=== PATIENT | female | born 1970 | race Caucasian/White ===

== ENCOUNTER → 2016-10-31 | Outpatient (REF) | payer OTHER, MEDICARE ==
[~2016-10-31] MED LIST: /LAMO20TA OR; /OXYC15TA OR; ACET65TA OR; BACL10TA2; CALC0.5C OR; COLA100C2 OR; DICLOFENAC PO; FERR325T; FERR325T OR; FLEXERIL OR; FLEXERIL PO; FLON0.05; FOLI1TAB OR; FOLI400T PO; GINGER PO; GLIP5TAB2 PO; IBUP800T OR; Indomethacin PO; LABE10TAB PO; LASI40TA; LASI40TA OR; LIDO5DIS; LIDO5DIS TD; LUNE2TAB OR; MIRALEX; MIRALEX OR; MORP60TA OR; MORP60TA3; MS C30TA2 OR; MULTCAP8 PO; MULTIVIT OR; NAPR-239 OR; NEUR300C OR; OPAN10TA16; POTA95TA PO; PRENTAB74 PO; PRIL40CA OR; PROBCAP4 PO; SOMA350T; SPIR25TA2 OR; TEGR200T; TEGR200T OR; VITAD1000T PO; VOLT1GEL TOP; VOLT1GEL2 TD; ZANA4CAP OR; ZANTTAB PO; ZIPR80CAP OR; [UNRECOGNIZED DRUG - OTHER]; [UNRECOGNIZED DRUG - OTHER] PO; [UNRECOGNIZED DRUG - OTHER] TOP
[2016-10-31 11:58] LABS: PROGESTERONE 28.3 NG/ML
[2016-10-31 11:59] LABS: ESTRADIOL 1153.7 PG/ML
== END ==
LOC: M LABDRAW1 11:14
PROVIDERS: ATTEND Obstetrics & Gynecology Reproductive Endocrinology
DX: N97.9 Female infertility, unspecified (principal)

== ENCOUNTER → 2019-03-03 | Outpatient (REF) | payer BC, MEDICARE ==
[~2019-03-03] MED LIST changes: -/LAMO20TA OR; -/OXYC15TA OR; -CALC0.5C OR; +CALC0.5C14 OR; +LAMI1TAB9 OR; +OXYC1TAB32 OR
[2019-03-03 12:38] LABS: HEMATOCRIT 36.7 % (36.0-47.0); HEMOGLOBIN 11.9 g/dl (12.0-15.5); MEAN CORPUSCULAR HEMOGLOBIN 29.2 pg (27.0-33.0); MEAN CORPUSCULAR HGB CONC 32.4 g/dl (32.0-36.5); MEAN CORPUSCULAR VOLUME 90.2 fl (80.0-96.0); PLATELET COUNT, AUTOMATED 299 10^3/uL (150-450); RED BLOOD COUNT 4.07 10^6/uL (4.00-5.40); WHITE BLOOD COUNT 11.3 10^3/uL (4.0-10.0)
[2019-03-03 13:00] LABS: ALBUMIN 3.4 GM/DL (3.2-5.2); BILIRUBIN,TOTAL 0.3 MG/DL (0.2-1.0); CALCIUM LEVEL 9.5 MG/DL (8.5-10.1); CREATININE FOR GFR 1.09 MG/DL (0.55-1.30); GLOMERULAR FILTRATION RATE 56.8 (>58); POTASSIUM SERUM 4.9 MEQ/L (3.5-5.1); TOTAL PROTEIN 6.9 GM/DL (6.4-8.2)
[2019-03-03 13:35] LABS: HEMOGLOBIN A1c 6.2 %
== END ==
LOC: M SFHCADAM 10:13
PROVIDERS: ATTEND Physician Assistant
DX: E11.9 Type 2 diabetes mellitus without complications (principal); N18.3 Chronic kidney disease, stage 3 (moderate)

== ENCOUNTER → 2019-05-27 | Outpatient (REF) | payer BC, MEDICARE ==
[2019-05-27 12:32] LABS: AMORPHOUS SEDIMENT SMALL (NEGATIVE); APPEARANCE, URINE CLEAR (CLEAR); BACTERIA, URINE AUTO NEGATIVE (NEGATIVE); BILIRUBIN, URINE AUTO NEGATIVE (NEGATIVE); BLOOD, URINE BLOOD NEGATIVE (NEGATIVE); COLOR, URINE YELLOW (YELLOW); GLUCOSE, URINE (UA) AUTO NEGATIVE (NEGATIVE); KETONE, URINE AUTO NEGATIVE (NEGATIVE); LEUKOCYTE ESTERASE, URINE AUTO NEGATIVE (NEGATIVE); NITRITE, URINE AUTO NEGATIVE (NEGATIVE); PROTEIN, URINE AUTO NEGATIVE (NEGATIVE); RBC, URINE AUTO 0 /HPF (0-3); SPECIFIC GRAVITY URINE AUTO 1.006 (1.002-1.035); SQUAMOUS EPITHELIAL CELL UR AU 1 /HPF (0-6); UROBILINOGEN, URINE AUTO 0.2 mg/dL (0.0-2.0); WBC, URINE AUTO 1 /HPF (0-3)
[2019-05-27 12:44] LABS: CALCIUM LEVEL 9.4 MG/DL (8.5-10.1); CREATININE FOR GFR 1.06 MG/DL (0.55-1.30); GLOMERULAR FILTRATION RATE 58.7 (>58)
== END ==
LOC: M SFHCADAM 07:35
PROVIDERS: ATTEND Physician Assistant
DX: Z23 Encounter for immunization (principal); R82.90 Unspecified abnormal findings in urine; E11.9 Type 2 diabetes mellitus without complications

== ENCOUNTER → 2019-07-17 | Outpatient (REF) | payer BC, MEDICARE ==
[2019-07-17 17:11] LABS: HEMATOCRIT 39.3 % (36.0-47.0); HEMOGLOBIN 12.2 g/dl (12.0-15.5); MEAN CORPUSCULAR HEMOGLOBIN 27.8 pg (27.0-33.0); MEAN CORPUSCULAR VOLUME 89.5 fl (80.0-96.0); PLATELET COUNT, AUTOMATED 328 10^3/uL (150-450); RED BLOOD COUNT 4.39 10^6/uL (4.00-5.40); WHITE BLOOD COUNT 14.4 10^3/uL (4.0-10.0)
[2019-07-17 17:19] LABS: ALBUMIN 3.6 GM/DL (3.2-5.2); BILIRUBIN,TOTAL 0.2 MG/DL (0.2-1.0); CALCIUM LEVEL 9.7 MG/DL (8.5-10.1); CHOLESTEROL RISK RATIO 3.593 (<5); CREATININE FOR GFR 1.09 MG/DL (0.55-1.30); FREE T4 1.08 NG/DL (0.76-1.46); GLOMERULAR FILTRATION RATE 56.6 (>51); POTASSIUM SERUM 5.5 MEQ/L (3.5-5.1); THYROID STIMULATING HORMONE 2.17 uIU/ML (0.358-3.740); TOTAL PROTEIN 7.2 GM/DL (6.4-8.2)
[2019-07-17 17:40] LABS: HEMOGLOBIN A1c 6.5 %
[2019-07-17 17:44] LABS: MALB URINE SIEMENS 98.9 MG/L; MAU/CREAT RATIO 290.8 MCG/MG (0.0-30.0)
== END ==
LOC: M SFHCADAM 13:49
PROVIDERS: ATTEND Physician Assistant
DX: E11.9 Type 2 diabetes mellitus without complications (principal); N18.3 Chronic kidney disease, stage 3 (moderate)

== ENCOUNTER → 2019-08-19 | Outpatient (REF) | payer BC, MEDICARE ==
[2019-08-19 13:36] LABS: BLOOD UREA NITROGEN 7 MG/DL (7-18); CALCIUM LEVEL 9.4 MG/DL (8.5-10.1); CARBON DIOXIDE LEVEL 30 MEQ/L (21-32); CHLORIDE LEVEL 98 MEQ/L (98-107); CREATININE FOR GFR 0.99 MG/DL (0.55-1.30); GLOMERULAR FILTRATION RATE > 60.0 (>51); GLUCOSE, FASTING 102 MG/DL (70-100); POTASSIUM SERUM 5.1 MEQ/L (3.5-5.1); SODIUM LEVEL 133 MEQ/L (136-145)
== END ==
LOC: M SFHCADAM 09:05
PROVIDERS: ATTEND Physician Assistant
DX: E87.5 Hyperkalemia (principal)

== ENCOUNTER → 2019-10-02 | Outpatient (REF) | payer BC, MEDICARE ==
[2019-10-02 18:02] LABS: ALBUMIN 3.7 GM/DL (3.2-5.2); C REACTIVE PROTEIN QUANTITATIV 2.25 MG/DL (0.00-0.30); CREATININE FOR GFR 1.07 MG/DL (0.55-1.30); GLOMERULAR FILTRATION RATE 57.8 (>51)
[2019-10-02 18:05] LABS: BASO % 0.3 % (0.0-1.0); EOS # 0.2 10^3/uL (0.0-0.5); EOS % 1.8 % (0.0-3.0); HEMATOCRIT 36.6 % (36.0-47.0); HEMOGLOBIN 12.1 g/dl (12.0-15.5); LYMPH # 2.9 10^3/uL (1.5-5.0); MEAN CORPUSCULAR HGB CONC 33.1 g/dl (32.0-36.5); MEAN CORPUSCULAR VOLUME 87.8 fl (80.0-96.0); MONO % 7.3 % (0.0-5.0); NEUTROPHILS # 9.1 10^3/uL (1.5-8.5); NEUTROPHILS % 68.1 % (36.0-66.0); PLATELET COUNT, AUTOMATED 342 10^3/uL (150-450); RED BLOOD COUNT 4.17 10^6/uL (4.00-5.40); WHITE BLOOD COUNT 13.3 10^3/uL (4.0-10.0)
[2019-10-02 19:02] LABS: ERYTHROCYTE SEDIMENTATION RATE 82 mm/hr (0-30)
== END ==
LOC: M LAB REF 16:34
PROVIDERS: ATTEND Internal Medicine Rheumatology
DX: M45.6 Ankylosing spondylitis lumbar region (principal); M79.7 Fibromyalgia; Z79.899 Other long term (current) drug therapy

== ENCOUNTER → 2019-10-25 | Outpatient (CLI) | payer BC, MEDICARE ==
--- NOTE | 2019-10-29 17:28 | SLEEPCENT ---
DATE OF PROCEDURE: 10/25/2019 ORDERED BY: GILMA Flores Nocturnal polysomnography was performed for evaluation of sleep physiology in this patient with history of excessive somnolence and nonrestorative sleep who has comorbidities of diabetes. 8 hours and 13 minutes of data were reviewed. There were 391 minutes of sleep identified. Sleep latency was prolonged at 47 minutes. Rapid eye movement (REM) latency was prolonged at 155 minutes. Sleep architecture was fair with some fragmentation. Two REM cycles were noted. Overall sleep efficiency 80.9%. The electrocardiogram shows a sinus rhythm with an average heart rate of 90 beats per minute. Electroencephalogram (EEG) showed normal waveforms for awake and sleep and some artifact was noted. There were 63 respiratory events identified of 10 seconds in duration or greater for an apnea hypopnea index of 9.7. The events were not exclusive sleep stage, more frequent in the supine posture but not exclusive to that position. Arousals from respiratory events occurred 6.3 times per hour and oxygen desaturations were seen into the low 80s. There was some activity in the limb leads but limb movement arousals were few. Snoring was noted over the course of the entire study. IMPRESSION: Obstructive sleep apnea syndrome (G47.33). Apnea hypopnea index of 9.7. RECOMMENDATIONS: The patient should be encouraged to return to the sleep disorder center for pressure therapy. In the interim, alcohol and sedative avoidance should be practiced and caution exercised during the operation of motor vehicles.
== END ==
LOC: M SLEEP 20:00
PROVIDERS: ATTEND Physician Assistant
DX: G47.33 Obstructive sleep apnea (adult) (pediatric) (principal)

== ENCOUNTER → 2019-11-14 | Outpatient (REF) | payer BC, MEDICARE ==
[2019-11-14 13:01] LABS: HEMATOCRIT 35.7 % (36.0-47.0); HEMOGLOBIN 11.5 g/dl (12.0-15.5); MEAN CORPUSCULAR HEMOGLOBIN 28.5 pg (27.0-33.0); MEAN CORPUSCULAR HGB CONC 32.2 g/dl (32.0-36.5); MEAN CORPUSCULAR VOLUME 88.4 fl (80.0-96.0); PLATELET COUNT, AUTOMATED 286 10^3/uL (150-450); RED BLOOD COUNT 4.04 10^6/uL (4.00-5.40); WHITE BLOOD COUNT 11.7 10^3/uL (4.0-10.0)
[2019-11-14 13:44] LABS: ALBUMIN 3.5 GM/DL (3.2-5.2); ALT/SGPT 20 U/L (12-78); BILIRUBIN,TOTAL 0.4 MG/DL (0.2-1.0); BLOOD UREA NITROGEN 12 MG/DL (7-18); CALCIUM LEVEL 8.7 MG/DL (8.5-10.1); CARBON DIOXIDE LEVEL 28 MEQ/L (21-32); CHLORIDE LEVEL 103 MEQ/L (98-107); CHOLESTEROL LEVEL 137 MG/DL (<200); CHOLESTEROL RISK RATIO 2.686 (<5); CREATININE FOR GFR 0.99 MG/DL (0.55-1.30); GLOMERULAR FILTRATION RATE > 60.0 (>51); GLUCOSE, FASTING 97 MG/DL (70-100); HDL CHOLESTEROL 51 MG/DL (>40); LDL CHOLESTEROL 69 MG/DL (<100); NON-HDL-C 86 MG/DL; POTASSIUM SERUM 5.1 MEQ/L (3.5-5.1); SODIUM LEVEL 137 MEQ/L (136-145); TOTAL PROTEIN 6.9 GM/DL (6.4-8.2); TRIGLYCERIDES LEVEL 83 MG/DL (<150)
[2019-11-14 13:52] LABS: HEMOGLOBIN A1c 6.2 %
== END ==
LOC: M SFHCADAM 09:20
PROVIDERS: ATTEND Physician Assistant
DX: E87.5 Hyperkalemia (principal); E11.9 Type 2 diabetes mellitus without complications; N18.3 Chronic kidney disease, stage 3 (moderate); Z12.4 Encounter for screening for malignant neoplasm of cervix
CPT/HCPCS: 80053; 80061; 83036; 85027; 87624; G0123

== ENCOUNTER → 2019-12-11 | Outpatient (CLI) | payer BC, MEDICARE ==
--- NOTE | 2019-12-24 15:01 | SLEEPCENT ---
DATE OF STUDY: 12/11/2019 ORDERED BY: RACHAEL Flores Nocturnal polysomnography was performed for the titration of pressure therapy in this patient with obstructive sleep apnea syndrome. Apnea-hypopnea index of 9.7. For testing, the patient was fit with a [employer] full-face mask of small size. 4 cm of water pressure were applied to the circuit, and the lights were extinguished. 8 hours and 19 minutes of data were reviewed. There were 316 minutes of sleep identified. Sleep latency was quite prolonged at 81 minutes. Rapid eye movement (REM) latency was also prolonged at 368 minutes. Sleep architecture showed poor progression. There was one REM cycle late in the study. Overall sleep efficiency was 64.4% due to a period of awake between 2:15 and 3:20. The patient's electrocardiogram showed a sinus rhythm with an average heart rate of 80 beats per minute. Unifocal ventricular ectopic beats were noted. Electroencephalogram (EEG) shows coarsening in the background, some alpha intrusion, possibly medication effect. Respiratory events were well palliated at low continuous positive airway pressure (CPAP) pressures. However, late in the study, the patient entered REM sleep and began to display obstruction once again. Pressure for palliation of respiratory events was CPAP of +9, as pressure was achieved very late in the study but was associated with maintenance of REM sleep and minimal oxygen desaturation. Some limb activity was noted in the electromyelogram (EMG) leads. Limb movement arousal index was 7.8. IMPRESSION: Obstructive sleep apnea syndrome (G47.33). RECOMMENDATION: Initiation of pressure therapy at 9 cm of water would seem appropriate based on these results. Close clinical followup is recommended, as titration was limited by the duration of testing.
== END ==
LOC: M SLEEP 20:00
PROVIDERS: ATTEND Physician Assistant
DX: G47.33 Obstructive sleep apnea (adult) (pediatric) (principal)

== ENCOUNTER → 2020-06-21 | Outpatient (CLI) | payer BC, MEDICARE ==
[~2020-06-21] MED LIST changes: +LABE100T4 PO; -LABE10TAB PO
--- NOTE | 2020-06-21 13:55 | REP ---
INDICATION: PAIN IN LEFT KNEE COMPARISON: None. TECHNIQUE: AP, lateral, bilateral oblique and sunrise views. FINDINGS: No acute fracture or dislocation. There is minimal increased sclerosis along the medial tibiofemoral joint space with subtle joint space narrowing. Lateral and sunrise views demonstrate fraying along the anterior superior patellar margin. No acute fracture or dislocation. No effusion. IMPRESSION: Relatively mild age-related degenerative changes. <Electronically signed by Villa Benitez > 06/21/20 [id number]
== END ==
LOC: M ADAMS 13:26
PROVIDERS: ATTEND Physician Assistant
DX: M25.562 Pain in left knee (principal)

== ENCOUNTER → 2020-07-02 | Outpatient (REF) | payer BC, MEDICARE ==
[2020-07-02 14:50] LABS: CHOLESTEROL RISK RATIO 2.627 (<5)
[2020-07-02 15:32] LABS: HEMOGLOBIN A1c 5.8 %
== END ==
LOC: M LABDRWAD 13:56
PROVIDERS: ATTEND Psychiatry & Neurology Psychiatry
DX: Z79.899 Other long term (current) drug therapy (principal)

== ENCOUNTER → 2020-07-02 | Outpatient (REF) | payer BC, MEDICARE ==
[2020-07-02 14:13] LABS: BASO # 0.1 10^3/uL (0.0-0.2); BASO % 0.4 % (0.0-1.0); EOS # 0.3 10^3/uL (0.0-0.5); EOS % 2.9 % (0.0-3.0); HEMATOCRIT 35.7 % (36.0-47.0); HEMOGLOBIN 11.2 g/dl (12.0-15.5); LYMPH # 3.4 10^3/uL (1.5-5.0); LYMPH % 30.1 % (24.0-44.0); MEAN CORPUSCULAR HEMOGLOBIN 28.2 pg (27.0-33.0); MEAN CORPUSCULAR HGB CONC 31.4 g/dl (32.0-36.5); MEAN CORPUSCULAR VOLUME 89.9 fl (80.0-96.0); MONO # 0.8 10^3/uL (0.0-0.8); MONO % 6.9 % (0.0-5.0); NEUTROPHILS # 6.7 10^3/uL (1.5-8.5); NEUTROPHILS % 59.3 % (36.0-66.0); PLATELET COUNT, AUTOMATED 303 10^3/uL (150-450); RED BLOOD COUNT 3.97 10^6/uL (4.00-5.40); WHITE BLOOD COUNT 11.4 10^3/uL (4.0-10.0)
[2020-07-02 14:33] LABS: ERYTHROCYTE SEDIMENTATION RATE 52 mm/hr (0-30)
[2020-07-02 14:44] LABS: ALBUMIN 3.4 GM/DL (3.2-5.2); ALT/SGPT 30 U/L (12-78); C REACTIVE PROTEIN QUANTITATIV 1.76 MG/DL (0.00-0.30); CREATININE FOR GFR 0.95 MG/DL (0.55-1.30); GLOMERULAR FILTRATION RATE > 60.0 (>51)
== END ==
LOC: M LABDRWAD 13:54
PROVIDERS: ATTEND Internal Medicine Rheumatology
DX: Z79.899 Other long term (current) drug therapy (principal)

== ENCOUNTER → 2020-07-02 | Outpatient (REF) | payer BC, MEDICARE ==
[2020-07-02 14:32] LABS: ALBUMIN 3.5 GM/DL (3.2-5.2); ALT/SGPT 28 U/L (12-78); BILIRUBIN,TOTAL 0.2 MG/DL (0.2-1.0); BLOOD UREA NITROGEN 13 MG/DL (7-18); CALCIUM LEVEL 9.6 MG/DL (8.5-10.1); CARBON DIOXIDE LEVEL 28 MEQ/L (21-32); CHLORIDE LEVEL 100 MEQ/L (98-107); CREATININE FOR GFR 0.91 MG/DL (0.55-1.30); GLOMERULAR FILTRATION RATE > 60.0 (>51); GLUCOSE, FASTING 105 MG/DL (70-100); POTASSIUM SERUM 4.8 MEQ/L (3.5-5.1); SODIUM LEVEL 136 MEQ/L (136-145); TOTAL PROTEIN 6.7 GM/DL (6.4-8.2)
[2020-07-02 14:40] LABS: CREATININE, URINE 86.6 MG/DL; MALB URINE SIEMENS 20.1 MG/L; MAU/CREAT RATIO 23.2 MCG/MG (0.0-30.0)
[2020-07-02 15:53] LABS: HEMOGLOBIN A1c 5.7 %
== END ==
LOC: M SFHCADAM 08:39
PROVIDERS: ATTEND Physician Assistant
DX: E11.9 Type 2 diabetes mellitus without complications (principal); N18.9 Chronic kidney disease, unspecified; I11.9 Hypertensive heart disease without heart failure

== ENCOUNTER → 2020-12-14 | Outpatient (REF) | payer BC, MEDICARE ==
[2020-12-14 15:46] LABS: C REACTIVE PROTEIN QUANTITATIV 2.26 MG/DL (0.00-0.30); CREATININE FOR GFR 1.05 MG/DL (0.55-1.30); GLOMERULAR FILTRATION RATE 58.8 (>51)
[2020-12-14 15:51] LABS: BASO % 0.2 % (0.0-1.0); EOS # 0.3 10^3/uL (0.0-0.5); EOS % 2.6 % (0.0-3.0); HEMATOCRIT 40.6 % (36.0-47.0); HEMOGLOBIN 12.9 g/dl (12.0-15.5); LYMPH # 3.1 10^3/uL (1.5-5.0); LYMPH % 25.5 % (24.0-44.0); MEAN CORPUSCULAR HEMOGLOBIN 28.9 pg (27.0-33.0); MEAN CORPUSCULAR HGB CONC 31.8 g/dl (32.0-36.5); MEAN CORPUSCULAR VOLUME 90.8 fl (80.0-96.0); NEUTROPHILS # 7.6 10^3/uL (1.5-8.5); NEUTROPHILS % 63.2 % (36.0-66.0); PLATELET COUNT, AUTOMATED 295 10^3/uL (150-450); RED BLOOD COUNT 4.47 10^6/uL (4.00-5.40); WHITE BLOOD COUNT 12.1 10^3/uL (4.0-10.0)
[2020-12-14 16:57] LABS: ERYTHROCYTE SEDIMENTATION RATE 52 mm/hr (0-30)
== END ==
LOC: M LABDRWAD 15:32
PROVIDERS: ATTEND Internal Medicine Rheumatology
DX: Z79.899 Other long term (current) drug therapy (principal)

== ENCOUNTER → 2020-12-14 | Outpatient (REF) | payer BC, MEDICARE ==
[2020-12-14 13:48] LABS: ALBUMIN 3.6 GM/DL (3.2-5.2); BILIRUBIN,TOTAL 0.2 MG/DL (0.2-1.0); CALCIUM LEVEL 9.1 MG/DL (8.5-10.1); CHOLESTEROL RISK RATIO 2.411 (<5); CREATININE FOR GFR 1.05 MG/DL (0.55-1.30); FREE T4 0.9 NG/DL (0.76-1.46); GLOMERULAR FILTRATION RATE 58.8 (>51); POTASSIUM SERUM 4.7 MEQ/L (3.5-5.1); THYROID STIMULATING HORMONE 1.51 uIU/ML (0.358-3.740)
[2020-12-14 14:42] LABS: HEMOGLOBIN A1c 6.1 %
== END ==
LOC: M SFHCADAM 08:51
PROVIDERS: ATTEND Physician Assistant
DX: E11.9 Type 2 diabetes mellitus without complications (principal); M45.0 Ankylosing spondylitis of multiple sites in spine; I11.9 Hypertensive heart disease without heart failure; R00.0 Tachycardia, unspecified

== ENCOUNTER → 2020-12-16 | Outpatient (REF) | payer BC, MEDICARE | LOC: M LAB REF 17:06 | PROVIDERS: ATTEND Internal Medicine Nephrology | DX: E83.42 Hypomagnesemia (principal) ==

== ENCOUNTER → 2021-03-18 | Outpatient (REF) | payer BC, MEDICARE | LOC: M LAB REF 16:49 | PROVIDERS: ATTEND Internal Medicine Nephrology | DX: N18.31 Chronic kidney disease, stage 3a (principal) ==

== ENCOUNTER → 2021-03-29 | Outpatient (REF) | payer BC, MEDICARE ==
[2021-03-29 13:03] LABS: BASO % 0.3 % (0.0-1.0); EOS # 0.3 10^3/uL (0.0-0.5); EOS % 2.9 % (0.0-3.0); HEMATOCRIT 39.8 % (36.0-47.0); HEMOGLOBIN 12.9 g/dl (12.0-15.5); LYMPH # 2.7 10^3/uL (1.5-5.0); LYMPH % 24.3 % (24.0-44.0); MEAN CORPUSCULAR HEMOGLOBIN 29.2 pg (27.0-33.0); MEAN CORPUSCULAR HGB CONC 32.4 g/dl (32.0-36.5); MONO # 0.7 10^3/uL (0.0-0.8); MONO % 6.5 % (2.0-8.0); NEUTROPHILS # 7.4 10^3/uL (1.5-8.5); NEUTROPHILS % 65.6 % (36.0-66.0); PLATELET COUNT, AUTOMATED 295 10^3/uL (150-450); RED BLOOD COUNT 4.42 10^6/uL (4.00-5.40); WHITE BLOOD COUNT 11.2 10^3/uL (4.0-10.0)
[2021-03-29 13:25] LABS: ALBUMIN 3.7 GM/DL (3.2-5.2); ALT/SGPT 24 U/L (12-78); BLOOD UREA NITROGEN 27 MG/DL (7-18); C REACTIVE PROTEIN QUANTITATIV 2.56 MG/DL (0.00-0.30); GLOMERULAR FILTRATION RATE > 60.0 (>51)
[2021-03-29 13:36] LABS: HEPATITIS B SURFACE ANTIBODY NEGATIVE (POSITIVE)
[2021-03-29 13:47] LABS: HEPATITIS B SURFACE ANTIGEN NEGATIVE (NEGATIVE)
[2021-03-29 13:57] LABS: ERYTHROCYTE SEDIMENTATION RATE 52 mm/hr (0-30)
[2021-03-29 14:15] LABS: HEPATITIS C VIRUS ABY INDEX < 0.0 INDEX (<0.8)
== END ==
LOC: M LABDRWAD 12:25
DX: M45.6 Ankylosing spondylitis lumbar region (principal); M79.7 Fibromyalgia; Z79.899 Other long term (current) drug therapy; R53.83 Other fatigue

== ENCOUNTER → 2021-03-29 | Outpatient (REF) | payer BC, MEDICARE ==
[2021-03-29 14:01] LABS: HEMOGLOBIN A1c 6.1 %
== END ==
LOC: M SFHCADAM 08:38
PROVIDERS: ATTEND Physician Assistant
DX: E11.9 Type 2 diabetes mellitus without complications (principal); I11.9 Hypertensive heart disease without heart failure

== ENCOUNTER → 2021-09-26 | Outpatient (REF) | payer BC, MEDICARE ==
[2021-09-26 14:32] LABS: HEMOGLOBIN A1c 5.9 %
== END ==
LOC: M SFHCADAM 08:06
PROVIDERS: ATTEND Physician Assistant
DX: E11.9 Type 2 diabetes mellitus without complications (principal)

== ENCOUNTER → 2022-03-23 | Outpatient (REF) | payer BC, MEDICARE ==
[~2022-03-23] MED LIST changes: -LABE100T4 PO; +LABE100T6 PO
== END ==
LOC: M SFHCADAM 12:29
PROVIDERS: ATTEND Physician Assistant
DX: Z12.11 Encounter for screening for malignant neoplasm of colon (principal); I11.9 Hypertensive heart disease without heart failure; R73.03 Prediabetes

== ENCOUNTER → 2022-07-31 | Outpatient (CLI) | payer BC, MEDICARE | LOC: M PAIN 13:00 | PROVIDERS: ATTEND Nurse Practitioner Family | DX: M46.1 Sacroiliitis, not elsewhere classified (principal); G89.29 Other chronic pain; E11.9 Type 2 diabetes mellitus without complications; M79.7 Fibromyalgia; G47.33 Obstructive sleep apnea (adult) (pediatric); Z86.59 Personal history of other mental and behavioral disorders; Z87.891 Personal history of nicotine dependence; Z88.2 Allergy status to sulfonamides; Z88.6 Allergy status to analgesic agent; Z88.8 Allergy status to other drugs, medicaments and biological substances; Z91.018 Allergy to other foods; E66.01 Morbid (severe) obesity due to excess calories; Z68.42 Body mass index [BMI] 45.0-49.9, adult; Z79.899 Other long term (current) drug therapy ==

== ENCOUNTER → 2022-08-16 | Outpatient (REF) | payer BC, MEDICARE | LOC: M LAB REF 16:58 | PROVIDERS: ATTEND Internal Medicine Nephrology | DX: N18.31 Chronic kidney disease, stage 3a (principal) ==

== ENCOUNTER → 2022-08-31 | Outpatient (CLI) | payer BC, MEDICARE | LOC: M ADAMS 13:52 | PROVIDERS: ATTEND Nurse Practitioner Family | DX: M46.1 Sacroiliitis, not elsewhere classified (principal) ==

== ENCOUNTER → 2022-10-04 | Outpatient (REF) | payer BC, MEDICARE ==
[2022-10-04 15:50] LABS: ALBUMIN 3.3 G/DL (3.2-5.2); ALKALINE PHOSPHATASE 69 U/L (46-116); ALT/SGPT 18 U/L (7.0-40); AST/SGOT 16 U/L (<34); BILIRUBIN,TOTAL 0.3 MG/DL (0.3-1.2); BLOOD UREA NITROGEN 15 MG/DL (9-23); CALCIUM LEVEL 9.3 MG/DL (8.5-10.1); CARBON DIOXIDE LEVEL 27 MMOL/L (20-31); CHLORIDE LEVEL 104 MMOL/L (98-107); CHOLESTEROL LEVEL 185 MG/DL (<200); CHOLESTEROL RISK RATIO 3.83 (<5); CREATININE FOR GFR 0.97 MG/DL (0.55-1.30); GLOMERULAR FILTRATION RATE > 60.0 (>51); GLUCOSE, FASTING 96 MG/DL (60-100); HDL CHOLESTEROL 48.2 MG/DL (>40); LDL CHOLESTEROL 112.4 MG/DL (<100); NON-HDL-C 136.8 MG/DL; POTASSIUM SERUM 4.2 MMOL/L (3.5-5.1); SODIUM LEVEL 135 MMOL/L (136-145); TOTAL PROTEIN 6.6 G/DL (5.7-8.2); TRIGLYCERIDES LEVEL 122 MG/DL (<150)
[2022-10-04 15:52] LABS: FREE T4 0.92 NG/DL (0.89-1.76)
[2022-10-04 15:53] LABS: THYROID STIMULATING HORMONE 1.936 uIU/ML (0.55-4.78)
== END ==
LOC: M LABDRWAD 12:32
PROVIDERS: ATTEND Nurse Practitioner Family
DX: E11.9 Type 2 diabetes mellitus without complications (principal); I11.9 Hypertensive heart disease without heart failure

== ENCOUNTER → 2022-12-05 | Outpatient (CLI) | payer BC, MEDICARE ==
[2022-12-05 14:23] LABS: BASO % 0.5 % (0.0-1.0); EOS # 0.2 10^3/uL (0.0-0.5); HEMATOCRIT 38.3 % (36.0-47.0); HEMOGLOBIN 12.8 g/dl (12.0-15.5); LYMPH % 23.6 % (24.0-44.0); MEAN CORPUSCULAR HEMOGLOBIN 30.3 pg (27.0-33.0); MEAN CORPUSCULAR HGB CONC 33.4 g/dl (32.0-36.5); MEAN CORPUSCULAR VOLUME 90.8 fl (80.0-96.0); MONO # 0.8 10^3/uL (0.0-0.8); MONO % 9.1 % (2.0-8.0); NEUTROPHILS # 5.5 10^3/uL (1.5-8.5); NEUTROPHILS % 64.4 % (36.0-66.0); PLATELET COUNT, AUTOMATED 236 10^3/uL (150-450); RED BLOOD COUNT 4.22 10^6/uL (4.00-5.40); WHITE BLOOD COUNT 8.5 10^3/uL (4.0-10.0)
[2022-12-05 14:55] LABS: ALBUMIN 3.7 G/DL (3.2-5.2); ALT/SGPT 19 U/L (7.0-40); AST/SGOT 12 U/L (<34); CREATININE FOR GFR 0.91 MG/DL (0.55-1.30); GLOMERULAR FILTRATION RATE > 60.0 (>51)
[2022-12-05 15:00] LABS: ERYTHROCYTE SEDIMENTATION RATE 55 mm/hr (0-30)
== END ==
LOC: M LABDRWAD 09:10
PROVIDERS: ATTEND Physician Assistant Medical
DX: M45.6 Ankylosing spondylitis lumbar region (principal); M79.7 Fibromyalgia; Z79.899 Other long term (current) drug therapy; R53.83 Other fatigue

== ENCOUNTER → 2022-12-14 | Outpatient (CLI) | payer BC, MEDICARE | LOC: M PLAIMG 13:21 | PROVIDERS: ATTEND Nurse Practitioner Family | DX: M53.3 Sacrococcygeal disorders, not elsewhere classified (principal) ==

== ENCOUNTER → 2023-01-04 | Outpatient (CLI) | payer BC, MEDICARE | LOC: M WHC 10:22 | PROVIDERS: ATTEND Physician Assistant | DX: Z12.11 Encounter for screening for malignant neoplasm of colon (principal); Z53.9 Procedure and treatment not carried out, unspecified reason ==

== ENCOUNTER → 2023-01-04 | Outpatient (REF) | payer BC, MEDICARE | LOC: M SFHCADAM 13:19 | PROVIDERS: ATTEND Physician Assistant | DX: Z12.4 Encounter for screening for malignant neoplasm of cervix (principal) | CPT/HCPCS: 87624; G0123 ==

== ENCOUNTER → 2023-02-07 | Outpatient (CLI) | payer BC, MEDICARE | LOC: M RAD 13:31 | PROVIDERS: ATTEND Physician Assistant | DX: F17.211 Nicotine dependence, cigarettes, in remission (principal) ==

== ENCOUNTER → 2023-04-04 | Outpatient (REF) | payer BC, MEDICARE ==
[2023-04-04 13:44] LABS: HEMOGLOBIN A1c 5.4 % (4.0-6.0)
[2023-04-04 13:54] LABS: CHOLESTEROL RISK RATIO 4.85 (<5); HDL CHOLESTEROL 50.9 MG/DL (>40); LDL CHOLESTEROL 165.7 MG/DL (<100); NON-HDL-C 196.1 MG/DL
== END ==
LOC: M LABDRWAD 12:18
PROVIDERS: ATTEND Psychiatry & Neurology Psychiatry
DX: Z79.899 Other long term (current) drug therapy (principal)

== ENCOUNTER → 2023-07-06 | Outpatient (REF) | payer BC, MEDICARE ==
[2023-07-06 13:41] LABS: ALBUMIN 3.4 G/DL (3.2-5.2); ALKALINE PHOSPHATASE 65 U/L (46-116); ALT/SGPT 16 U/L (7.0-40); AST/SGOT 12 U/L (<34); BILIRUBIN,TOTAL 0.4 MG/DL (0.3-1.2); BLOOD UREA NITROGEN 8 MG/DL (9-23); CALCIUM LEVEL 9.1 MG/DL (8.5-10.1); CARBON DIOXIDE LEVEL 30 MMOL/L (20-31); CHLORIDE LEVEL 105 MMOL/L (98-107); CREATININE FOR GFR 0.79 MG/DL (0.55-1.30); GLOMERULAR FILTRATION RATE > 60.0 (>51); GLUCOSE, FASTING 104 MG/DL (60-100); POTASSIUM SERUM 4.4 MMOL/L (3.5-5.1); SODIUM LEVEL 138 MMOL/L (136-145); TOTAL PROTEIN 6.6 G/DL (5.7-8.2)
[2023-07-06 14:12] LABS: HEMOGLOBIN A1c 5.8 % (4.0-6.0)
== END ==
LOC: M SFHCADAM 07:54
PROVIDERS: ATTEND Physician Assistant
DX: I11.9 Hypertensive heart disease without heart failure (principal); E11.9 Type 2 diabetes mellitus without complications

== ENCOUNTER → 2023-11-06 | Outpatient (CLI) | payer BC, MEDICARE | LOC: M WHC 11:46 | PROVIDERS: ATTEND Physician Assistant | DX: Z12.31 Encounter for screening mammogram for malignant neoplasm of breast (principal) ==

== ENCOUNTER → 2024-01-09 | Outpatient (REF) | payer BC, MEDICARE ==
[2024-01-09 13:00] LABS: HEMATOCRIT 39.5 % (36.0-47.0); HEMOGLOBIN 13.2 g/dl (12.0-15.5); MEAN CORPUSCULAR HEMOGLOBIN 30.8 pg (27.0-33.0); MEAN CORPUSCULAR HGB CONC 33.4 g/dl (32.0-36.5); MEAN CORPUSCULAR VOLUME 92.1 fl (80.0-96.0); PLATELET COUNT, AUTOMATED 227 10^3/uL (150-450); RED BLOOD COUNT 4.29 10^6/uL (4.00-5.40)
[2024-01-09 13:22] LABS: HEMOGLOBIN A1c 5.5 % (4.0-6.0)
[2024-01-09 13:30] LABS: THYROID STIMULATING HORMONE 1.866 uIU/ML (0.55-4.78)
[2024-01-09 13:31] LABS: FREE T4 1.16 NG/DL (0.89-1.76)
[2024-01-09 13:33] LABS: FOLATE > 24.0 NG/ML (>5.4)
[2024-01-09 13:34] LABS: ALBUMIN 3.6 G/DL (3.2-5.2); ALKALINE PHOSPHATASE 75 U/L (46-116); ALT/SGPT 26 U/L (7.0-40); AST/SGOT 13 U/L (<34); BILIRUBIN,TOTAL 0.4 MG/DL (0.3-1.2); BLOOD UREA NITROGEN 11 MG/DL (9-23); CALCIUM LEVEL 9.6 MG/DL (8.5-10.1); CARBON DIOXIDE LEVEL 25 MMOL/L (20-31); CHLORIDE LEVEL 104 MMOL/L (98-107); CHOLESTEROL LEVEL 232 MG/DL (<200); CHOLESTEROL RISK RATIO 4.34 (<5); CREATININE FOR GFR 0.87 MG/DL (0.55-1.30); GLOMERULAR FILTRATION RATE > 60.0 (>51); GLUCOSE, FASTING 120 MG/DL (60-100); HDL CHOLESTEROL 53.4 MG/DL (>40); NON-HDL-C 178.6 MG/DL; POTASSIUM SERUM 4.3 MMOL/L (3.5-5.1); SODIUM LEVEL 137 MMOL/L (136-145); TOTAL PROTEIN 6.9 G/DL (5.7-8.2); TRIGLYCERIDES LEVEL 148 MG/DL (<150); VITAMIN B12 LEVEL 498 PG/ML (211-911)
== END ==
LOC: M SFHCADAM 07:53
PROVIDERS: ATTEND Physician Assistant
DX: M76.61 Achilles tendinitis, right leg (principal); E11.9 Type 2 diabetes mellitus without complications; M76.62 Achilles tendinitis, left leg; I11.9 Hypertensive heart disease without heart failure; N18.31 Chronic kidney disease, stage 3a

== ENCOUNTER → 2024-02-15 | Outpatient (REF) | payer BC, MEDICARE ==
[2024-02-15 18:00] LABS: BASO # 0.1 10^3/uL (0.0-0.2); BASO % 0.3 % (0.0-1.0); EOS # 0.3 10^3/uL (0.0-0.5); EOS % 1.4 % (0.0-3.0); HEMATOCRIT 39.7 % (36.0-47.0); HEMOGLOBIN 13.3 g/dl (12.0-15.5); LYMPH # 1.9 10^3/uL (1.5-5.0); LYMPH % 10.2 % (24.0-44.0); MEAN CORPUSCULAR HEMOGLOBIN 31.1 pg (27.0-33.0); MEAN CORPUSCULAR HGB CONC 33.5 g/dl (32.0-36.5); MEAN CORPUSCULAR VOLUME 92.8 fl (80.0-96.0); MONO % 5.6 % (2.0-8.0); NEUTROPHILS # 15.3 10^3/uL (1.5-8.5); PLATELET COUNT, AUTOMATED 240 10^3/uL (150-450); RED BLOOD COUNT 4.28 10^6/uL (4.00-5.40); WHITE BLOOD COUNT 18.6 10^3/uL (4.0-10.0)
[2024-02-15 18:05] LABS: ERYTHROCYTE SEDIMENTATION RATE 62 mm/hr (0-30)
[2024-02-15 18:11] LABS: ALBUMIN 3.7 G/DL (3.2-5.2); ALKALINE PHOSPHATASE 90 U/L (46-116); ALT/SGPT 18 U/L (7.0-40); AST/SGOT 9 U/L (<34); BILIRUBIN,TOTAL 0.3 MG/DL (0.3-1.2); BLOOD UREA NITROGEN 16 MG/DL (9-23); CARBON DIOXIDE LEVEL 30 MMOL/L (20-31); CHLORIDE LEVEL 100 MMOL/L (98-107); CHOLESTEROL LEVEL 162 MG/DL (<200); CHOLESTEROL RISK RATIO 2.49 (<5); CREATININE FOR GFR 0.99 MG/DL (0.55-1.30); GLOMERULAR FILTRATION RATE > 60.0 (>51); GLUCOSE, FASTING 69 MG/DL (60-100); HDL CHOLESTEROL 64.9 MG/DL (>40); LDL CHOLESTEROL 63.7 MG/DL (<100); NON-HDL-C 97.1 MG/DL; POTASSIUM SERUM 5.1 MMOL/L (3.5-5.1); SODIUM LEVEL 133 MMOL/L (136-145); TOTAL PROTEIN 7.3 G/DL (5.7-8.2); TRIGLYCERIDES LEVEL 167 MG/DL (<150)
[2024-02-20 20:02] LABS: LYME TOTAL ANTIBODY CIA <= 0.90 Index (<=0.90)
== END ==
LOC: M SFHCADAM 15:14
PROVIDERS: ATTEND Physician Assistant
DX: E78.00 Pure hypercholesterolemia, unspecified (principal); M25.511 Pain in right shoulder

== ENCOUNTER → 2024-04-02 | Outpatient (REF) | payer BC, MEDICARE ==
[2024-04-02 17:23] LABS: CHOLESTEROL RISK RATIO 2.76 (<5); HDL CHOLESTEROL 52.1 MG/DL (>40); LDL CHOLESTEROL 72.3 MG/DL (<100); NON-HDL-C 91.9 MG/DL
== END ==
LOC: M LABDRWAD 13:10
PROVIDERS: ATTEND Psychiatry & Neurology Psychiatry
DX: Z79.899 Other long term (current) drug therapy (principal)

== ENCOUNTER → 2024-04-08 | Outpatient (REF) | payer BC, MEDICARE | LOC: M LABDRWAD 13:53 | PROVIDERS: ATTEND Psychiatry & Neurology Psychiatry | DX: Z79.899 Other long term (current) drug therapy (principal) ==

== ENCOUNTER → 2024-05-01 | Outpatient (REF) | payer BC, MEDICARE ==
[2024-05-01 14:57] LABS: BASO % 0.3 % (0.0-1.0); EOS # 0.3 10^3/uL (0.0-0.5); EOS % 2.7 % (0.0-3.0); HEMATOCRIT 38.4 % (36.0-47.0); HEMOGLOBIN 12.8 g/dl (12.0-15.5); LYMPH # 2.1 10^3/uL (1.5-5.0); LYMPH % 19.4 % (24.0-44.0); MEAN CORPUSCULAR HGB CONC 33.3 g/dl (32.0-36.5); MONO # 0.7 10^3/uL (0.0-0.8); MONO % 6.8 % (2.0-8.0); NEUTROPHILS # 7.5 10^3/uL (1.5-8.5); NEUTROPHILS % 70.4 % (36.0-66.0); PLATELET COUNT, AUTOMATED 248 10^3/uL (150-450); RED BLOOD COUNT 4.13 10^6/uL (4.00-5.40); WHITE BLOOD COUNT 10.7 10^3/uL (4.0-10.0)
[2024-05-01 15:03] LABS: THYROID STIMULATING HORMONE 2.529 uIU/ML (0.55-4.78)
[2024-05-01 15:04] LABS: ALBUMIN 3.6 G/DL (3.2-5.2); ALKALINE PHOSPHATASE 87 U/L (35-104); ALT/SGPT 25 U/L (7.0-40); AST/SGOT 14 U/L (<34); BILIRUBIN,TOTAL 0.4 MG/DL (0.3-1.2); BLOOD UREA NITROGEN 16 MG/DL (9-23); CALCIUM LEVEL 9.9 MG/DL (8.5-10.1); CARBON DIOXIDE LEVEL 28 MMOL/L (20-31); CHLORIDE LEVEL 104 MMOL/L (98-107); CREATININE FOR GFR 0.87 MG/DL (0.55-1.30); ERYTHROCYTE SEDIMENTATION RATE 75 mm/hr (0-30); GLOMERULAR FILTRATION RATE > 60.0 (>51); GLUCOSE, FASTING 105 MG/DL (60-100); POTASSIUM SERUM 4.7 MMOL/L (3.5-5.1); SODIUM LEVEL 139 MMOL/L (136-145); TOTAL PROTEIN 7.2 G/DL (5.7-8.2)
[2024-05-01 15:05] LABS: FREE T4 1.39 NG/DL (0.89-1.76)
== END ==
LOC: M SFHCADAM 08:01
PROVIDERS: ATTEND Family Medicine
DX: R53.81 Other malaise (principal); R53.83 Other fatigue; M45.0 Ankylosing spondylitis of multiple sites in spine

== ENCOUNTER → 2024-05-07 | Outpatient (CLI) | payer BC, MEDICARE ==
[2024-05-07 08:59] LABS: BASO % 0.3 % (0.0-1.0); EOS # 0.3 10^3/uL (0.0-0.5); EOS % 2.5 % (0.0-3.0); HEMATOCRIT 35.9 % (36.0-47.0); HEMOGLOBIN 12.4 g/dl (12.0-15.5); LYMPH # 1.8 10^3/uL (1.5-5.0); LYMPH % 15.3 % (24.0-44.0); MEAN CORPUSCULAR HEMOGLOBIN 30.8 pg (27.0-33.0); MEAN CORPUSCULAR HGB CONC 34.5 g/dl (32.0-36.5); MEAN CORPUSCULAR VOLUME 89.3 fl (80.0-96.0); MONO # 0.8 10^3/uL (0.0-0.8); MONO % 6.7 % (2.0-8.0); NEUTROPHILS # 8.6 10^3/uL (1.5-8.5); NEUTROPHILS % 74.8 % (36.0-66.0); PLATELET COUNT, AUTOMATED 252 10^3/uL (150-450); RED BLOOD COUNT 4.02 10^6/uL (4.00-5.40); WHITE BLOOD COUNT 11.5 10^3/uL (4.0-10.0)
[2024-05-07 09:20] LABS: LIPASE 56 U/L (12-53)
[2024-05-07 09:21] LABS: AMYLASE 55 U/L (30-118)
[2024-05-07 09:22] LABS: ALBUMIN 3.4 G/DL (3.2-5.2); ALKALINE PHOSPHATASE 89 U/L (35-104); ALT/SGPT 17 U/L (7.0-40); AST/SGOT 9 U/L (<34); BILIRUBIN,TOTAL 0.4 MG/DL (0.3-1.2); BLOOD UREA NITROGEN 8 MG/DL (9-23); CALCIUM LEVEL 9.8 MG/DL (8.5-10.1); CARBON DIOXIDE LEVEL 28 MMOL/L (20-31); CHLORIDE LEVEL 96 MMOL/L (98-107); CREATININE FOR GFR 0.83 MG/DL (0.55-1.30); GLOMERULAR FILTRATION RATE > 60.0 (>51); GLUCOSE, FASTING 111 MG/DL (60-100); POTASSIUM SERUM 4.5 MMOL/L (3.5-5.1); SODIUM LEVEL 129 MMOL/L (136-145); TOTAL PROTEIN 7.1 G/DL (5.7-8.2)
== END ==
LOC: M RAD 08:13
PROVIDERS: ATTEND Physician Assistant
DX: Z12.2 Encounter for screening for malignant neoplasm of respiratory organs (principal); F17.211 Nicotine dependence, cigarettes, in remission

== ENCOUNTER → 2024-05-27 | Outpatient (REF) | payer BC, MEDICARE ==
[2024-05-27 14:08] LABS: LIPASE 50 U/L (12-53)
[2024-05-27 14:10] LABS: ALBUMIN 3.4 G/DL (3.2-5.2); ALKALINE PHOSPHATASE 89 U/L (35-104); ALT/SGPT 27 U/L (7.0-40); AMYLASE 58 U/L (30-118); AST/SGOT 17 U/L (<34); BILIRUBIN,TOTAL 0.4 MG/DL (0.3-1.2); BLOOD UREA NITROGEN 13 MG/DL (9-23); CARBON DIOXIDE LEVEL 30 MMOL/L (20-31); CHLORIDE LEVEL 101 MMOL/L (98-107); CREATININE FOR GFR 0.85 MG/DL (0.55-1.30); GLOMERULAR FILTRATION RATE > 60.0 (>51); GLUCOSE, FASTING 116 MG/DL (60-100); POTASSIUM SERUM 4.9 MMOL/L (3.5-5.1); SODIUM LEVEL 136 MMOL/L (136-145); TOTAL PROTEIN 7.2 G/DL (5.7-8.2)
== END ==
LOC: M SFHCADAM 07:42
PROVIDERS: ATTEND Physician Assistant
DX: E11.22 Type 2 diabetes mellitus with diabetic chronic kidney disease (principal); N18.31 Chronic kidney disease, stage 3a; M45.9 Ankylosing spondylitis of unspecified sites in spine

== ENCOUNTER → 2024-08-13 | Outpatient (CLI) | payer BC, MEDICARE ==
[2024-08-13 14:35] LABS: BASO # 0.1 10^3/uL (0.0-0.2); BASO % 0.6 % (0.0-1.0); EOS # 0.4 10^3/uL (0.0-0.5); EOS % 4.9 % (0.0-3.0); HEMATOCRIT 37.6 % (36.0-47.0); HEMOGLOBIN 12.3 g/dl (12.0-15.5); LYMPH # 1.7 10^3/uL (1.5-5.0); LYMPH % 19.6 % (24.0-44.0); MEAN CORPUSCULAR HEMOGLOBIN 29.5 pg (27.0-33.0); MEAN CORPUSCULAR HGB CONC 32.7 g/dl (32.0-36.5); MEAN CORPUSCULAR VOLUME 90.2 fl (80.0-96.0); MONO # 0.8 10^3/uL (0.0-0.8); MONO % 8.9 % (2.0-8.0); NEUTROPHILS # 5.8 10^3/uL (1.5-8.5); NEUTROPHILS % 65.8 % (36.0-66.0); PLATELET COUNT, AUTOMATED 251 10^3/uL (150-450); RED BLOOD COUNT 4.17 10^6/uL (4.00-5.40); WHITE BLOOD COUNT 8.8 10^3/uL (4.0-10.0)
[2024-08-13 14:41] LABS: ERYTHROCYTE SEDIMENTATION RATE 61 mm/hr (0-30)
[2024-08-13 14:56] LABS: ALBUMIN 3.2 G/DL (3.2-5.2); ALT/SGPT 22 U/L (7.0-40); AST/SGOT 13 U/L (<34); C REACTIVE PROTEIN QUANTITATIV 2.41 MG/DL (<1.0); CREATININE FOR GFR 0.91 MG/DL (0.55-1.30); GLOMERULAR FILTRATION RATE > 60.0 (>51)
== END ==
LOC: M ADAMS 08:44
PROVIDERS: ATTEND Physician Assistant Medical
DX: Z79.899 Other long term (current) drug therapy (principal)

== ENCOUNTER → 2024-09-08 | Outpatient (REF) | payer BC, MEDICARE ==
[2024-09-08 13:51] LABS: ALBUMIN 3.4 G/DL (3.2-5.2); ALKALINE PHOSPHATASE 83 U/L (35-104); ALT/SGPT 32 U/L (7.0-40); AST/SGOT 15 U/L (<34); BILIRUBIN,TOTAL 0.3 MG/DL (0.3-1.2); BLOOD UREA NITROGEN 16 MG/DL (9-23); CALCIUM LEVEL 9.4 MG/DL (8.5-10.1); CARBON DIOXIDE LEVEL 29 MMOL/L (20-31); CHLORIDE LEVEL 103 MMOL/L (98-107); CREATININE FOR GFR 0.81 MG/DL (0.55-1.30); GLOMERULAR FILTRATION RATE > 60.0 (>51); GLUCOSE, FASTING 107 MG/DL (60-100); POTASSIUM SERUM 4.6 MMOL/L (3.5-5.1); SODIUM LEVEL 139 MMOL/L (136-145); TOTAL PROTEIN 6.8 G/DL (5.7-8.2)
== END ==
LOC: M SFHCADAM 08:09
PROVIDERS: ATTEND Physician Assistant
DX: E11.9 Type 2 diabetes mellitus without complications (principal); N18.31 Chronic kidney disease, stage 3a; M45.9 Ankylosing spondylitis of unspecified sites in spine; K21.9 Gastro-esophageal reflux disease without esophagitis

== ENCOUNTER → 2024-10-30 | Outpatient (REF) | payer BC, MEDICARE ==
[2024-10-30 17:37] LABS: MEAN CORPUSCULAR HGB CONC 32.5 g/dl (32.0-36.5); MEAN CORPUSCULAR VOLUME 92.4 fl (80.0-96.0); PLATELET COUNT, AUTOMATED 252 10^3/uL (150-450); RED BLOOD COUNT 4.33 10^6/uL (4.00-5.40); WHITE BLOOD COUNT 10.9 10^3/uL (4.0-10.0)
[2024-10-30 17:46] LABS: ALBUMIN 3.6 G/DL (3.2-5.2); ALKALINE PHOSPHATASE 97 U/L (35-104); ALT/SGPT 31 U/L (7.0-40); AST/SGOT 20 U/L (<34); BILIRUBIN,TOTAL 0.2 MG/DL (0.3-1.2); BLOOD UREA NITROGEN 9 MG/DL (9-23); CALCIUM LEVEL 9.8 MG/DL (8.5-10.1); CARBON DIOXIDE LEVEL 29 MMOL/L (20-31); CHLORIDE LEVEL 102 MMOL/L (98-107); CREATININE FOR GFR 0.82 MG/DL (0.55-1.30); GLOMERULAR FILTRATION RATE 84.4 (>51); GLUCOSE, FASTING 72 MG/DL (60-100); POTASSIUM SERUM 4.8 MMOL/L (3.5-5.1); SODIUM LEVEL 138 MMOL/L (136-145)
[2024-10-30 17:48] LABS: HEPATITIS B SURFACE ANTIBODY NEGATIVE (POSITIVE)
[2024-10-30 18:00] LABS: HEPATITIS B SURFACE ANTIGEN NEGATIVE (NEGATIVE)
[2024-10-30 18:13] LABS: HIV 1&2 SCREEN NEGATIVE (NEGATIVE)
[2024-10-30 18:22] LABS: HEPATITIS C VIRUS ABY INDEX 0.03 INDEX (<0.8)
== END ==
LOC: M SFHCDERM 11:35
PROVIDERS: ATTEND Physician Assistant
DX: L40.8 Other psoriasis (principal)

== ENCOUNTER → 2025-03-11 | Outpatient (REF) | payer BC, MEDICARE ==
[2025-03-11 16:16] LABS: CHOLESTEROL LEVEL 153.0 MG/DL (<200); CHOLESTEROL RISK RATIO 2.67 (<5); LDL CHOLESTEROL 73.6 MG/DL (<100); NON-HDL-C 95.8 MG/DL; TRIGLYCERIDES LEVEL 111.0 MG/DL (<150)
[2025-03-11 17:38] LABS: ESTIMATED AVERAGE GLUCOSE 131.0 MG/DL (60-110)
== END ==
LOC: M LABDRWAD 15:09
PROVIDERS: ATTEND Psychiatry & Neurology Psychiatry
DX: Z79.899 Other long term (current) drug therapy (principal)

== ENCOUNTER → 2025-03-11 | Outpatient (REF) | payer BC, MEDICARE ==
[2025-03-11 14:38] LABS: ALT/SGPT 26.0 U/L (7.0-40); AST/SGOT 20.0 U/L (<34); CALCIUM LEVEL 9.6 MG/DL (8.5-10.1); CARBON DIOXIDE LEVEL 28.0 MMOL/L (20-31); CHLORIDE LEVEL 102.0 MMOL/L (98-107); CREATININE FOR GFR 0.88 MG/DL (0.55-1.30); GLOMERULAR FILTRATION RATE 77.6 (>51); POTASSIUM SERUM 4.8 MMOL/L (3.5-5.1); SODIUM LEVEL 140.0 MMOL/L (136-145)
[2025-03-11 14:52] LABS: ESTIMATED AVERAGE GLUCOSE 134.0 MG/DL (60-110)
== END ==
LOC: M SFHCADAM 08:13
PROVIDERS: ATTEND Physician Assistant
DX: E66.01 Morbid (severe) obesity due to excess calories (principal); E11.9 Type 2 diabetes mellitus without complications; Z12.31 Encounter for screening mammogram for malignant neoplasm of breast; Z79.899 Other long term (current) drug therapy